=== PATIENT | male | born 1960 | race Caucasian/White ===

== ENCOUNTER 2018-10-15 12:25 | Inpatient (IN) ==
[2018-10-15] MEDS ORDERED: SENOKOT PO PRN (15:34)
[2018-10-15] MEDS ORDERED: PHENOBARBITAL IV PRN (15:34)
[2018-10-15] MEDS ORDERED: D5W 1,000 ML IV PRN (15:34)
[2018-10-15] MEDS ORDERED: DULCOLAX PR PRN (15:34)
[2018-10-15] MEDS ORDERED: ZOFRAN ODT PO PRN (15:34)
[2018-10-15] MEDS ORDERED: TUBERSOL ID ONE (15:34)
[2018-10-15] MEDS ORDERED: ZOFRAN IM PRN (15:34)
[2018-10-15] MEDS ORDERED: IMODIUM PO PRN ×2 (15:34)
[2018-10-15] MEDS ORDERED: MAALOX PLUS LIQUID PO PRN (15:34)
[2018-10-15] MEDS ORDERED: NICOTINE GUM BUCCAL PRN (15:34)
[2018-10-15] MEDS ORDERED: ZOFRAN IV PRN (15:34)
[2018-10-15] MEDS: MOTRIN PO PRN (16:17)
[2018-10-15 16:23] LABS: AMYLASE 61 U/L (20-200); LIPASE 42 U/L (13-60)
[2018-10-15 17:41] LABS: URINE SOURCE CLEAN CATCH
[2018-10-15 17:57] LABS: BILIRUBIN URINE NEGATIVE (NEGATIVE); BLOOD URINE NEGATIVE (NEGATIVE); GLUCOSE URINE NEGATIVE (NEGATIVE); KETONE URINE 3+(Large) mg/dL (NEGATIVE); LEUKOCYTES URINE TRACE (NEGATIVE); NITRITE URINE NEGATIVE (NEGATIVE); PROTEIN URINE 1+(30 mg/dL) mg/dL (NEGATIVE); UROBILINOGEN URINE 1 mg/dL
[2018-10-15 17:58] LABS: CLARITY CLEAR (CLEAR); COLOR YELLOW
[2018-10-15 18:04] LABS: UR AMPHETAMINES QUAL NONE DETECTED (NONE DETECT); UR BARBITUATES QUAL NONE DETECTED (NONE DETECT); UR BENZODIAZEPIN QUAL PRESUMPTIVE POSITIVE (NONE DETECT); UR CANNABINOIDS QUAL PRESUMPTIVE POSITIVE (NONE DETECT); UR COCAINE QUAL NONE DETECTED (NONE DETECT); UR METHADONE QUAL PRESUMPTIVE POSITIVE (NONE DETECT); UR METHAMPHETAMINE QUAL NONE DETECTED (NONE DETECT); UR OPIATES QUAL NONE DETECTED (NONE DETECT); UR OXYCODONE QUAL NONE DETECTED (NONE DETECT); UR PCP QUAL NONE DETECTED (NONE DETECT); UR PROPOXYPHENE QUAL NONE DETECTED (NONE DETECT); UR TCA QUAL PRESUMPTIVE POSITIVE (NONE DETECT)
[2018-10-15 18:26] LABS: URINE BACTERIA 1+ /HFP; URINE CAST NONE SEEN /LPF; URINE CRYSTAL NONE SEEN /HPF; URINE EPITHELIAL CELLS >10 /HPF (<10); URINE RBC <10 /HPF (<10); URINE WBC <10 /HPF (<10); URINE YEAST NONE SEEN /HPF
[2018-10-15] MEDS ORDERED: SALINE LOCK IV FLUID XX ONE (19:12)
[2018-10-15] MEDS ORDERED: BENTYL PO PRN (19:12)
[2018-10-15] MEDS: LIBRIUM PO SCH (19:50)
[2018-10-15] MEDS: ROBAXIN PO PRN (19:57)
[2018-10-15] MEDS: SEROQUEL PO PRN (19:57)
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
[2018-10-15] MEDS: DESYREL PO PRN (21:30)
[2018-10-15] MEDS: TYLENOL PO PRN (21:30)
[2018-10-15] MEDS: SINEMET 25/100 PO PRN (22:04)
[2018-10-16] MEDS: LIBRIUM PO SCH ×5 (01:27→23:07)
[2018-10-16] MEDS: PROTONIX PO SCH (06:08)
[2018-10-16] MEDS: ROBAXIN PO PRN ×2 (06:28→16:35)
[2018-10-16] MEDS: MOTRIN PO PRN ×2 (06:28→18:42)
[2018-10-16] MEDS ORDERED: SALINE LOCK IV FLUID XX ONE (07:15)
[2018-10-16] MEDS ORDERED: M.V.I.-12 10 ML, FOLIC ACID 1 MG, MAGNESIUM SULFATE 1 GM, THIAMINE 100 MG in NS 1,000 ML IV ONE (09:00)
[2018-10-16] MEDS: FOLIC ACID PO SCH (09:07)
[2018-10-16] MEDS: SINEMET 25/100 PO PRN ×2 (09:08→20:09)
[2018-10-16] MEDS: VITAMIN B-1 PO SCH (09:08)
[2018-10-16] MEDS: THERA M PLUS PO SCH (09:08)
[2018-10-16] MEDS: NICODERM PATCH TD PRN (10:18)
[2018-10-16] MEDS: TYLENOL PO PRN (15:03)
[2018-10-16] MEDS: ATARAX PO PRN (16:39)
[2018-10-16] MEDS: SEROQUEL PO PRN (20:09)
[2018-10-16] MEDS: DESYREL PO PRN (21:51)
--- NOTE | 2018-10-16 23:22 | PROGRESS NOTE ---
DATE: 10/16/2018 SUBJECTIVE: The patient notes overall he is feeling a little bit better. He denies any fevers, chills, cough or congestion. OBJECTIVE: Vital signs reviewed and stable. Temperature 97.8 degrees, pulse 62, respiratory rate 18, BP 121/78.General: The patient is in no respiratory distress. Neck is supple. CV: Regular rate. No murmurs. Chest clear, nonlabored. Abdomen soft, nondistended, nontender. Extremities: Moves all extremities. Neurologic: No changes. ASSESSMENT: 1. Nausea and vomiting. 2. Abdominal pain. 3. Myalgias. 4. Tremors. 5. Paresthesias. 6. Polysubstance use and abuse. PLAN: We will continue the patient in the hospital. Continue to wean Librium. Continue counseling. Further orders as needed. cc: Abdi Rae MD
[2018-10-17] MEDS: LIBRIUM PO SCH ×4 (05:04→22:32)
[2018-10-17] MEDS: PROTONIX PO SCH (06:18)
[2018-10-17] MEDS: MOTRIN PO PRN ×3 (06:31→22:32)
[2018-10-17] MEDS: THERA M PLUS PO SCH (09:55)
[2018-10-17] MEDS: VITAMIN B-1 PO SCH (09:55)
[2018-10-17] MEDS: FOLIC ACID PO SCH (09:56)
[2018-10-17] MEDS: TYLENOL PO PRN ×2 (11:18→20:34)
[2018-10-17] MEDS: ATARAX PO PRN (16:39)
[2018-10-17] MEDS: DESYREL PO PRN (20:34)
[2018-10-17] MEDS: SINEMET 25/100 PO PRN (20:34)
[2018-10-17] MEDS: SEROQUEL PO PRN (22:33)
[2018-10-17] MEDS: ROBAXIN PO PRN (22:33)
--- NOTE | 2018-10-18 00:21 | PROGRESS NOTE ---
DATE: 10/17/2018 SUBJECTIVE: Patient has no new complaints. States that he is feeling better. Denies any fevers, chills, cough, congestion. PHYSICAL EXAMINATION: Vital Signs: Reviewed. General: He is awake, alert. He is in no current respiratory distress. He is afebrile. Blood pressure stable. Heart rate 80s. HEENT: Normocephalic. Neck: Supple. Cardiovascular: Regular rate. Chest: Clear. Abdomen: Soft. Extremities: Moves all extremities. ASSESSMENT: 1. Nausea, vomiting. 2. Abdominal pain. 3. Myalgias. 4. Paresthesias. 5. Polysubstance abuse. PLAN: We will continue patient in the hospital. Continue to wean Librium. Hopefully, if he continues to improve he can be discharged home over the next day or two. cc: Abdi Rae MD
[2018-10-18] MEDS: LIBRIUM PO SCH ×4 (05:24→17:49)
[2018-10-18] MEDS: PROTONIX PO SCH ×2 (05:24→06:16)
[2018-10-18] MEDS: ROBAXIN PO PRN (06:39)
[2018-10-18] MEDS: SINEMET 25/100 PO PRN ×2 (06:39→21:22)
[2018-10-18] MEDS: MOTRIN PO PRN (06:39)
[2018-10-18] MEDS: THERA M PLUS PO SCH (09:10)
[2018-10-18] MEDS: SUBUTEX SL SCH ×2 (09:10→21:22)
[2018-10-18] MEDS: FOLIC ACID PO SCH (09:11)
[2018-10-18] MEDS: VITAMIN B-1 PO SCH (09:11)
[2018-10-18] MEDS: NICODERM PATCH TD PRN (09:32)
--- NOTE | 2018-10-18 19:54 | PROGRESS NOTE ---
DATE: 10/18/2018 SUBJECTIVE: Patient notes overall he is starting to feel a little bit better, still having lots of pain back, multiple joints etc. PHYSICAL: Temperature 97.8, pulse 60, respiratory 18, BP 127/83.General: Patient is awake, alert, currently in no distress. HEENT: Normocephalic. Neck: Supple. CV: Regular rate. Chest: Clear. Abdomen: Soft. Extremities: Moves all extremities. ASSESSMENT: 1. Nausea, vomiting. 2. Abdominal pain. 3. Myalgias. 4. Paresthesias. 5. Polysubstance use and abuse. PLAN: Overall patient is improving. We will continue Librium taper. We will start him on a low- dose Suboxone given that he states he drinks because of pain and he has been abusing opiates at times as well. We will continue to follow. cc: Abdi Rae MD
[2018-10-18] MEDS: TYLENOL PO PRN (21:22)
[2018-10-18] MEDS: SEROQUEL PO PRN (21:22)
[2018-10-18] MEDS: DESYREL PO PRN (23:54)
[2018-10-18] MEDS: ATARAX PO PRN (23:54)
[2018-10-19] MEDS: PROTONIX PO SCH (06:15)
[2018-10-19] MEDS: VITAMIN B-1 PO SCH (09:08)
[2018-10-19] MEDS: THERA M PLUS PO SCH (09:08)
[2018-10-19] MEDS: LIBRIUM PO SCH (09:08)
[2018-10-19] MEDS: SUBUTEX SL SCH (09:08)
[2018-10-19] MEDS: FOLIC ACID PO SCH (09:08)
[2018-10-19 11:38] VITALS: BP 116/81
--- NOTE | 2018-10-20 07:09 | DISCHARGE SUMMARY ---
ADMISSION DATE: 10/15/2018 DISCHARGE DATE: 10/19/2018 DISCHARGE DIAGNOSES: 1. Nausea. 2. Abdominal pain. 3. Myalgias. 4. Paresthesias. 5. Paroxysmal sweating. 6. Substance abuse withdrawal and stabilization. 7. Alcohol abuse withdrawal and stabilization. 8. Tremors. 9. Myalgias. CONSULTATIONS: None. PROCEDURES: None. BRIEF HOSPITAL COURSE: The patient is a 57-year-old male who presented to [facility] secondary to nausea, vomiting, abdominal pain, myalgias, paresthesias, paroxysmal sweating. He has chronic pain, chronic anxiety. Thankfully, he had an uneventful hospital course. He was admitted and placed on high-dose Librium taper, continued to wean. On discharge, he is awake, alert, he is in no distress. He notes that the Suboxone is making him feel a lot better. DISPOSITION: The patient will be discharged home. Discussed with him that he needs to avoid all persons, places, and situations in which he has been using and abusing in the past. He needs outpatient life counseling as well as [*] counseling. Discussed with him the use of Suboxone. We will start at 4 mg. Prescription was written. He will follow up outpatient with his primary care. Discussed continuing Librium, that he needs to avoid alcohol or stop Suboxone, does not need to do both. cc: Abdi Rae MD
== END 2018-10-19 13:41 | disposition home or self-care (01) | DRG 897 ==
LOC: P.DIRADM 14:35 → P.MEDSURG 14:46
PROVIDERS: ADMIT Family Medicine; ATTEND Family Medicine
CPT/HCPCS: 80104; 80301; 80305; 80307; 80320; 81001; 82055; 82150; 83690; 86580; 99999; A9270; G0431; G0434; G0477; G0480; G6040; J3411; J3475; J7030